=== PATIENT | female | born 2000 | race Caucasian/White ===

== ENCOUNTER 2023-01-15 19:32 | Emergency (ER) | payer OTHER, SELFPAY ==
[2023-01-15 19:35] VITALS: BP 159/99; PULSE 106; RESP 16; TEMP 37.3; O2SAT 98; BMI 28.5
--- NOTE | 2023-01-15 19:52 | CT_ITS ---
[address] [address] Patient Name: MOLINA DUPREE MRN: [id number] date: 2000 Sex: F Assigned Patient Location: ER Current Patient Location: ER Accession/Order Number: [id number] Exam Date: 01/15/2023 20:50 Report Date: 01/15/2023 21:25 At the request of: JEROME MARKER Procedure: CT soft tissue neck w con CT SOFT TISSUE NECK WITH IV CONTRAST. INDICATION: left sided neck mass COMPARISON: None. TECHNIQUE: CT soft tissue neck with IV contrast. Sagittal and coronal reformats were obtained. Approximately ML ml Omnipaque 350 was administered intravenously. FINDINGS: INTRACRANIAL CONTENTS: No mass or hemorrhage. PARANASAL SINUSES: Paranasal sinuses are clear. MASTOID AIR CELLS: Clear. EXTERNAL/MIDDLE AIR CAVITIES: Clear.l SALIVARY GLANDS: Normal. SUBCUTANEOUS/SOFT TISSUES: There is ill-defined inflammation deep to the left sternocleidomastoid muscle at the C2 level which measures approximately 1.7 x 1.5 cm. There is edema and inflammation of the left sternocleidomastoid muscle and surrounding musculature. There is also subcutaneous inflammation in the left upper lateral neck. No gas. ORAL CAVITY: No periapical lucency. No inflammation or abscess. MUCOSA: No mass.. No fluid collection or inflammation. Normal epiglottis and nasopharyngeal adenoids. PARAPHARYNGEAL/RETROPHARYNGEAL SPACES: Clear. No inflammation or fluid collection. LYMPH NODES: There are mildly enlarged left posterior cervical lymph nodes measuring up to 1 cm in short axis.. THYROID: No mass. UPPER LUNGS: Clear. VESSELS: The arterial and venous structures of the neck are patent. MUSCULOSKELETAL: No acute osseous abnormality.. CT/CT soft tissue neck w con IMPRESSION: 1. Findings are suggestive of left upper lateral neck cellulitis and myositis particularly involving the sternocleidomastoid muscle. There is a phlegmonous process deep to the sternocleidomastoid muscle at the C2 level. No drainable fluid collection. 2. Mildly enlarged left posterior cervical lymph nodes likely reactive. Recommend clinical follow-up. Electronically authenticated by: GABE AVALOS Date: 01/15/2023 21:25
--- NOTE | 2023-01-15 19:56 | ED_ITS ---
HPI - Skin/Abscess/Foreign Bdy General Chief complaint: Skin/Abscess/Foreign Body Stated complaint: LUMP Time Seen by Provider: 01/15/23 19:38 Source: patient Mode of arrival: walk-in History of Present Illness HPI narrative: 22-year-old female is brought to emergency department by her father for evaluation of a painful lump on the left side of her neck. The patient states she woke up Friday morning with a small lump on the lateral aspect of the left side of her neck. Since that time it has gotten bigger and more tender and today the skin became red. She has been running a low-grade fever around 101. She was seen and evaluated and had a negative strep test and a mono test. She was given a prescription for steroids and antibiotics. The patient's father states that as a child she had multiple ear infections and required ear tubes. When the ear tubes fell out they not replace them. The patient has pain with movement of her head in any direction. She denies any sore throat. She denies any headache. She has not had any weight loss or night sweats. Related Data Allergies Allergy/AdvReac Type Severity Reaction Status Date / Time No Known Drug Allergies Allergy Verified 01/15/23 19:40 Review of Systems ROS Status of ROS 10 or more systems reviewed and unremarkable except as noted in history and below Exam Narrative Exam Narrative: Nurses note and vital signs reviewed; She has a low-grade fever, she has not tachycardic with a pulse of 106 and blood pressure is elevated at 159/99, she has not hypoxic with pulse ox 98 percent on room air General:Anxious, nontoxic, somewhat tearful female, no respiratory distress Skin: Warm, dry, no pallor noted. There is no rash noted. Head: Normocephalic, atraumatic Eye: Normal conjunctiva, no drainage, EOMI. PERRL Neck: There is approximately 8 x 8 cm, firm, tender and erythematous mass on the left side of the neck- the swelling and tenderness extends over the left mastoid with mastoid tenderness, pt has decreased ROM in all directions due to the mass Ears, Nose, Mouth, and Throat: oral mucosa is moist. Nares patent. Mouth without vesicles. Ear canals patent. Left TM has a small ostia remaining, likely related to history of TM tube placement Cardiovascular: Regular Rate and Rhythm S1S2, tachycardic at triage at 106bpm Respiratory: Patient is in no distress, no accessory muscle use, lungs are c lear to auscultation, no wheezing, rales or rhonchi Back: non-tender, no CVA tenderness bilaterally to percussion. GI: Normal bowel sounds, no tenderness to palpation, no masses appreciated. No rebound, guarding, or rigidity noted. Musculoskeletal: The patient has no evidence of calf tenderness, no pitting edema, symmetrical pulses noted bilaterally Neurological: A&O x4, normal speech Psychiatric: Cooperative Constitutional Vital Signs, click to edit/add: Last Vital Signs Temp 99.2 F 01/15/23 19:35 Pulse 85 01/15/23 22:45 Resp 16 01/15/23 22:45 BP 128/82 01/15/23 22:45 Pulse Ox 96 01/15/23 22:45 O2 Del Method Room Air 01/15/23 19:35 Course Vital Signs Vital signs: Vital Signs Temperature 99.2 F 01/15/23 19:35 Pulse Rate 106 H 01/15/23 19:35 Respiratory Rate 16 01/15/23 19:35 Blood Pressure 159/99 H 01/15/23 19:35 Pulse Oximetry 98 01/15/23 19:35 Oxygen Delivery Method Room Air 01/15/23 19:35 Temperature 99.2 F 01/15/23 19:35 Pulse Rate 85 01/15/23 22:45 Respiratory Rate 16 01/15/23 22:45 Blood Pressure 128/82 01/15/23 22:45 Pulse Oximetry 96 01/15/23 22:45 Oxygen Delivery Method Room Air 01/15/23 19:35 MDM - Skin/Abscess/Foreign Bdy MDM Narrative Medical decision making narrative: 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 The symptoms started on Friday and have increased since that time. She was seen at [facility] acid negative for strep and mono and was given a prescription for Augmentin and steroids. She has been running a low-grade fever. Today the area became more tender and the skin became erythematous. She has a very large approximately 8 x 8 cm area of tender swelling at the left lateral neck that overlies the mastoid. She has pain with any range of motion of the neck. She is not having difficulty breathing or swallowing. My concern was that she had a developing abscess that may be encroaching on her pharyngeal spaces and retro-pharyngeal spaces. An IV was placed and she was medicated with IV fluids and Toradol. Routine labs are reviewed. She has a normal lactic acid. Her white blood cell count is elevated at 19.1. She has been on steroids for the past several days and is unclear if the elevated white blood cells indeed due to her infection or related to the steroid use. Her electrolytes are normal. CT scan of the neck with IV contrast which is included in the body of this report shows a cellulitis and myositis related to the sternocleidomastoid muscle with no drainable abscess, normal mastoid air cells, no impingement on the airway or pharyngeal or retropharyngeal spaces. This was discussed with the patient and her father. I discussed the case with ENT on-call. He suggested changing her and about his clindamycin for better coverage. She was encouraged to use warm compresses to this area for pain and at this point I did not feel that steroids would likely be helping her and suggested that she discontinue the steroid use antibiotics, clindamycin instead of Augmentin and follow closely with her PCP. She was encouraged to return to emergency department for difficulty breathing or swallowing or extension of the current infection. Medical Records Medical records narrative: The [address] [address] [address] Scan Report Signed Patient: MOLINA DUPREE MR#: [id number] : 2000 Acct:[id number] Age/Sex: 22 / F ADM Date: 01/15/23 Loc: ER Attending Dr: Ordering Physician: Juany Palomares Date of Service: 01/15/23 Procedure(s): CT soft tissue neck w con Accession Number(s): [id number] cc: Physician,Non-Staff Morgan~ The [address] [address] Patient Name: MOLINA DUPREE MRN: [facility]:[id number] date: 2000 Sex: F Assigned Patient Location: ER Current Patient Location: ER Accession/Order Number: [id number] Exam Date: 01/15/2023 20:50 Report Date: 01/15/2023 21:25 At the request of: JUANY PALOMARES Procedure: CT soft tissue neck w con CT SOFT TISSUE NECK WITH IV CONTRAST. INDICATION: left sided neck mass COMPARISON: None. TECHNIQUE: CT soft tissue neck with IV contrast. Sagittal and coronal reformats were obtained. Approximately ML ml Omnipaque 350 was administered intravenously. FINDINGS: INTRACRANIAL CONTENTS: No mass or hemorrhage. PARANASAL SINUSES: Paranasal sinuses are clear. MASTOID AIR CELLS: Clear. EXTERNAL/MIDDLE AIR CAVITIES: Clear.l SALIVARY GLANDS: Normal. SUBCUTANEOUS/SOFT TISSUES: There is ill-defined inflammation deep to the left sternocleidomastoid muscle at the C2 level which measures approximately 1.7 x 1.5 cm. There is edema and inflammation of the left sternocleidomastoid muscle and surrounding musculature. There is also subcutaneous inflammation in the left upper lateral neck. No gas. ORAL CAVITY: No periapical lucency. No inflammation or abscess. MUCOSA: No mass.. No fluid collection or inflammation. Normal epiglottis and nasopharyngeal adenoids. PARAPHARYNGEAL/RETROPHARYNGEAL SPACES: Clear. No inflammation or fluid collection. LYMPH NODES: There are mildly enlarged left posterior cervical lymph nodes measuring up to 1 cm in short axis.. THYROID: No mass. UPPER LUNGS: Clear. VESSELS: The arterial and venous structures of the neck are patent. MUSCULOSKELETAL: No acute osseous abnormality.. CT/CT soft tissue neck w con IMPRESSION: 1. Findings are suggestive of left upper lateral neck cellulitis and myositis particularly involving the sternocleidomastoid muscle. There is a phlegmonous process deep to the sternocleidomastoid muscle at the C2 level. No drainable fluid collection. 2. Mildly enlarged left posterior cervical lymph nodes likely reactive. Recommend clinical follow-up. Lab Data Labs: Lab Results 01/15/23 Range/Units 20:00 WBC 19.1 H (4.0-11.0) 10^3/uL RBC 3.76 L (4.20-5.40) 10^6/uL Hgb 11.2 L (12.0-16.0) g/dL Hct 34.3 L (36.0-48.0) % MCV 91.2 (81.0-99.0) fL MCH 29.8 (26.7-34.0) pg MCHC 32.7 (29.9-35.2) g/dL RDW 13.4 (11.0-15.0) % Plt Count 268 (150-450) 10^3/uL MPV 10.1 (9.5-13.5) fL Neut % (Auto) 75.6 H (43.0-75.0) % Lymph % (Auto) 18.0 L (20.5-60.0) % [place] % (Auto) 5.5 (1.7-12.0) % Eos % (Auto) 0.1 L (0.9-7.0) % Baso % (Auto) 0.2 (0.2-2.0) % Neut # (Auto) 14.4 H (1.4-6.5) 10^3/uL Lymph # (Auto) 3.4 (1.2-3.8) 10^3/uL [place] # (Auto) 1.1 H (0.3-0.8) 10^3/uL Eos # (Auto) 0.0 (0.0-0.7) 10^3/uL Baso # (Auto) 0.0 (0.0-0.1) 10^3/uL Abs Immat Gran (auto) 0.11 H (0.00-0.03) 10^3/uL Imm/Tot Granulo (auto) 0.6 H (0.0-0.5) % Sodium 138 (136-145) mmol/L Potassium 3.3 L (3.5-5.1) mmol/L Chloride 103 (98-107) mmol/L Carbon Dioxide 26.3 (21.0-32.0) mmol/L Anion Gap 12.0 BUN 9.0 (7.0-18.0) mg/dL Creatinine 0.71 (0.55-1.02) mg/dL Est GFR ( Amer) >60 (>=60) Est GFR (Non-Af Amer) >60 (>=60) BUN/Creatinine Ratio 12.7 Glucose 111 H (74-106) mg/dL Lactate 1.8 (0.4-2.0) mmol/L Calcium 9.1 (8.5-10.1) mg/dL Total Bilirubin 0.2 (0.2-1.0) mg/dL AST 20 (15-37) U/L ALT 18 (14-59) U/L Alkaline Phosphatase 79 (46-116) U/L Total Protein 8.0 (6.4-8.2) g/dL Albumin 3.2 L (3.4-5.0) g/dL Globulin 4.8 g/dL Albumin/Globulin Ratio 0.7 Discharge Plan Discharge Chief Complaint: Skin/Abscess/Foreign Body Clinical Impression: Cellulitis, Myositis Patient Disposition: Home, Self-Care Time of Disposition Decision: 21:52 Condition: Good Instructions: Cellulitis (ED) Additional Instructions: Tylenol Motrin as needed for fever or pain. Discontinue steroids and Augmentin and use clindamycin instead. Return to the emergency department for difficulty breathing or swallowing. Stand Alone Forms: Portal Instructions Referrals: JUDIE MITCHELL [Physician] - As soon as possible Physician,Non-Staff, [Primary Care Provider] - 1 week Discharge Date/Time: 01/15/23 22:49
[2023-01-15] MEDS: KETOROLAC TROMETHAMINE 30 MG/ML VIAL IVP (20:06)
[2023-01-15] MEDS: 0.9 % SODIUM CHLORIDE 1,000 ML 1000 ML IV (20:06)
[2023-01-15 20:09] LABS: Basophils Percent Auto 0.2 % (0.2-2.0); Eosinophils Percent Auto 0.1 % (0.9-7.0); Hematocrit 34.3 % (36.0-48.0); Hemoglobin 11.2 g/dL (12.0-16.0); Immature Granulocytes Abs Auto 0.11 10^3/uL (0.00-0.03); Immature Granulocytes Pct Auto 0.6 % (0.0-0.5); Lymphocytes Absolute Auto 3.4 10^3/uL (1.2-3.8); Mean Corpuscular HGB Conc 32.7 g/dL (29.9-35.2); Mean Corpuscular Hemoglobin 29.8 pg (26.7-34.0); Mean Corpuscular Volume 91.2 fL (81.0-99.0); Mean Platelet Volume 10.1 fL (9.5-13.5); Monocytes Absolute Auto 1.1 10^3/uL (0.3-0.8); Monocytes Percent Auto 5.5 % (1.7-12.0); Neutrophils Absolute Auto 14.4 10^3/uL (1.4-6.5); Neutrophils Percent Auto 75.6 % (43.0-75.0); Platelet Count 268 10^3/uL (150-450); Red Blood Count 3.76 10^6/uL (4.20-5.40); Red Cell Distribution Width 13.4 % (11.0-15.0); White Blood Count 19.1 10^3/uL (4.0-11.0)
[2023-01-15 20:28] LABS: Alanine Aminotransferase 18 U/L (14-59); Albumin Globulin Ratio 0.7; Albumin Level 3.2 g/dL (3.4-5.0); Alkaline Phosphatase 79 U/L (46-116); Aspartate Amino Transferase 20 U/L (15-37); BUN Creatinine Ratio 12.7; Bilirubin Total 0.2 mg/dL (0.2-1.0); Calcium 9.1 mg/dL (8.5-10.1); Carbon Dioxide 26.3 mmol/L (21.0-32.0); Chloride 103 mmol/L (98-107); Estimated GFR (African America >60 (>=60); Estimated GFR (Non-African Ame >60 (>=60); Globulin 4.8 g/dL; Glucose 111 mg/dL (74-106); Potassium 3.3 mmol/L (3.5-5.1); Sodium 138 mmol/L (136-145)
[2023-01-15 20:30] LABS: Lactate/Lactic Acid 1.8 mmol/L (0.4-2.0)
[2023-01-15] MEDS: CLINDAMYCIN PHOSPHATE/D5W 900 MG/50 ML PIGGYBACK 100 MG IV (22:03)
[2023-01-15 22:45] VITALS: BP 128/82; PULSE 85; RESP 16; O2SAT 96
== END 2023-01-15 22:49 | disposition home or self-care (01) ==
PROVIDERS: Emergency Provider Emergency Medicine
DX: L03.221 Cellulitis of neck (principal); M60.9 Myositis, unspecified; R50.9 Fever, unspecified
CPT/HCPCS: 36415; 70491; 80053; 83605; 85025; 87040; 96374; 96375; 99285; Q9967

== ENCOUNTER 2023-05-05 08:24 | Outpatient (OUT) | payer OTHER, SELFPAY ==
--- OUTSIDE RECORDS SUMMARY | 2023-05-05 08:27 | XMS_ITS | CCD ---
Author Name Unknown Address [facility] [place] [employer] [facility] [address] [place] [address] Organization [facility] Care Team Providers Care Tongue Trimmer Name Role Phone BinaTosha Unavailable DR JUDIE CASTANON Primary Care Unavailable KRISTIAN CHRISTIAN Admitting Unavailable KRISTIAN CHRISTIAN Attending Unavailable KRISTIAN CHRISTIAN Consulting Unavailable CASTANON, DR DIMAS Primary Care Unavailable KRISTIAN CHRISTIAN Admitting Unavailable KRISTIAN CHRISTIAN Attending Unavailable KRISTIAN CHRISTIAN Consulting Unavailable STEPHEN, DR DIMAS Primary Care Unavailable FRANCISCO SNYDER Attending Unavailable FRANCISCO SNYDER Consulting Unavailable FRANCISCO SNYDER Admitting Unavailable CASTANON, DR DIMAS Primary Care Unavailable ALONSO, DR LAVERNE Barber Consulting Unavailguille DESOUZATER, DR DIMAS Admitting Unavailable CASTANON, DR DIMAS Attending Unavailable Lewis Ba Unavailable Dyana Kwong Attending Unavailable Dyana Kwong Admitting Unavailable Judie Castanon Primary Care Unavailable Marty DELVALLE, Sadie Richardson Unavailable Judie Castanon MD Primary Care Provider Dyana Kwong NP Unavailable Oralia Mcadams NP Unavailable [phone] ORALIA MCADAMS Attending Unavailable Medications Current Medications Medication Drug Class(es) Dates Sig (Normalized) Sig (Original) amoxicillin 875 mg / clavulanate 125 mg oral tablet (1 source) Penicillin-class Antibacterial Start: 12-11-2022 take 1 tablet by mouth every twelve hours Amoxicillin-Pot Clavulanate 875-125 MG 1 tablet Orally every 12 hrs for 10 day(s) Nov, Active benzonatate 200 mg oral capsule (1 source) Non-narcotic Antitussive Start: 12-11-2022 take 1 capsule by mouth three times daily as needed for cough Benzonatate 200 MG 1 capsule Orally Three times a day as needed for cough for 7 day(s) Nov, Active cetirizine hydrochloride 10 mg oral tablet (4 sources) Histamine-1 Receptor Antagonist Start: 04-08-2019 take 1 tablet by mouth once daily Cetirizine HCl 10 MG 1 tablet Orally Once a day for 30 day(s) Jun, Active dextromethorphan hydrobromide 1.5 mg/ml / pyrilamine maleate 1.5 mg/ml oral solution (4 sources) Uncompetitive A-jehwpt-W-aspartat e Receptor Antagonist, Sigma-1 Agonist Start: 07-10-2021 Phillips DM 7.5-7.5 MG/5ML 10 ml Orally every 6-8 hours as needed for 8 days Jun, Active Start: 04-08-2019 Phillips DMT 30- 30 MG 1 tablet Orally every 6-8 hours for 7 days Mar, Not-Taking ethinyl estradiol 0.035 mg / norgestimate 0.25 mg oral tablet (3 sources) Progestin, Estrogen Estarylla 0. 25-35 MG-MCG tablet hydrOXYzine hydrochloride 25 mg oral tablet (2 sources) Antihistamine Start: 04-21-19 End: 05-21-19 24 hydrOXYzine HCl (Atarax) 25 MG tablet Indications: Anxiety Take 0.5 tablets (12.5 mg) by mouth as needed at bedtime for anxiety 15 tablet 0 04/21/2023 05/21/2023 Active sertraline 25 mg oral tablet (2 sources) Serotonin Reuptake Inhibitor Start: 04-21-19 End: 05-21-19 24 take 1 tablet by mouth in the morning sertraline (Zoloft) 25 MG tablet Indications: Anxiety Take 1 tablet (25 mg) by mouth in the morning. 30 tablet 0 04/21/2023 05/21/2023 Active Sprintec 28 (3 sources) Sprintec 28 Acti ve Completed/Discontinued Medications Medication Drug Class(es) Dates Sig (Normalized) Sig (Original) fluconazole 150 mg oral tablet (3 sources) Azole Antifungal Start: 01-13-2023 End: 04-21-2023 fluconazole (Diflucan) 150 MG tablet Indications: Vaginal lacey Take one tablet now, then take the second tablet 72 hours later 2 tablet 0 01/13/2023 04/21/2023 Discontinued (Therapy completed) fluticasone propionate 0.05 mg/actuat metered dose nasal spray (4 sources) Corticosteroid Start: 04-08-2019 take 1 spray(s) nasal route once daily Fluticasone Propionate 50 MCG/ACT 1 spray in each nostril Nasally Once a day for 30 day(s) Mar, Not-Taking predniSONE 20 mg oral tablet (4 sources) Start: 01-13-2023 End: 04-21-2023 predniSONE (Deltasone) 20 MG tablet Indications: Lymphadenopathy of left cervical region , Upper respiratory tract infection, unspecified type Take two tablets (40 mg) daily for five days, then take one tablet (20 mg) daily for five days. Take with food. 15 tablet 0 01/13/2023 04/21/2023 Discontinued (Therapy completed) Start: 12-11-2022 predniSONE 20 MG 1 tablet Orally twice a day for 5 days, then once a day for 5 days for 10 days Nov, Active Problems Active Problems Problem Classification Problem Date Documented Da te Episodic/Chronic Anxiety disorders (2 sources) Anxiety; Translations: [Anxiety disorder, unspecified] 04-21-2023 Chronic Conditions associated with dizziness or vertigo (4 sources) Dizziness and giddiness; Translations: [DIZZINESS AND GIDDINESS] Onset: 07-20-2021 Episodic Disorders of lipid metabolism (3 sources) Hyperlipidemia; Translations: [Hyperlipidemia, unspecified] Onset: 12-25-2018 01-13-2023 Chronic Essential hypertension (3 sources) Essential hypertension; Translations: [Essential (primary) hypertension] Onset: 12-25-2018 01-13-2023 Chronic Immunizations and screening for infectious disease (4 sources) Contact with and (suspected) exposure to other viral communicable diseases; Translations: [Contact with and (suspected) exposure to other viral communicable diseases] Onset: 07-10-2021 Resolved: 11-01-2021 Episodic Lymphadenitis (1 source) Localized enlarged lymph nodes; Translations: [Localized enlarged lymph nodes] Onset: 01-13-2023 Episodic Menstrual disorders (3 sources) Menorrhagia; Translations: [Excessive and frequent menstruation with regular cycle] Onset: 10-23-2022 10-23-2022 Chronic Mood disorders (3 sources) Recurrent major depressive episodes, mild ; Translations: [Major depressive disorder, recurrent, mild] Onset: 02-27-2021 01-13-2023 Chronic Nutritional deficiencies (3 sources) Vitamin D deficiency; Translations: [Vitamin D deficiency, unspecified] Onset: 05-28-2019 01-13-2023 Chronic Osteoporosis (3 sources) Senile osteoporosis; Translations: [Age-related osteoporosis without current pathological fracture] Onset: 12-25-2018 01-13-2023 Chronic Other acquired deformities (3 sources) Dextroscoliosis; Translations: [Other forms of scoliosis, site unspecified] Onset: 10-23-2022 10-23-2022 Chronic Other screening for suspected conditions (not mental disorders or infectious disease) (6 sources) Patient encounter status; Translations: [Encounter for screening for nutritional disorder] 04-24-2023 Episodic Other upper respiratory disease (3 sources) Sinusitis; Translations: [Allergic rhinitis, unspecified] Chronic Other upper respiratory disease (1 source) Allergic rhinitis, unspecified Onset: 07-10-2021 Resolved: 07-10-2021 Chronic Other upper respiratory disease (3 sources) Seasonal allergy; Translations: [Other seasonal allergic rhinitis] Onset: 10-23-2022 10-23-2022 Chronic Other upper respiratory infections (2 sources) Acute laryngitis; Translations: [Acute sinusitis, unspecified] Episodic Otitis media and related conditions (3 sources) Otitis media; Translations: [Otitis Media NOS] Episodic Peripheral and visceral atherosclerosis (3 sources) Peripheral vascular disease; Translations: [Peripheral vascular disease, unspecified] Onset: 04-13-2020 01-13-2023 Chronic Unclassified (2 sources) CONTACT W/AND (SUSP) EXPOS COVID-19; Translations: [CONTACT W/AND (SUSP) EXPOS COVID-19] Onset: 10-09-2021 Viral infection (1 source) COVID-19; Translations: [COVID-19] Onset: 10-09-2021 Past or Other Problems Problem Classification Problem Date Documented Da te Episodic/Chronic Administrative/social admission (4 sources) Encounter for pre-employment examination; Translations: [ENCOUNTER FOR PRE-EMPLOYMENT EXAM] Onset: 02-28-2021 Episodic Gastritis and duodenitis (3 sources) Gastroduodenitis; Translations: [Gastroduodenitis , unspecified, without bleeding] Onset: 10-23-2022 10-23-2022 Episodic Headache; including migraine (3 sources) Tension-type headache; Translations: [Tension-type headache, unspecified, not intractable] Onset: 10-23-2022 Resolved: 10-25-2022 10-25-2022 Chronic Mood disorders (2 sources) Mood disorders Onset: 04-21-2023 04-21-2023 Unclassified (1 source) CONTACT W/AND (SUSP) EXPOS COVID-19; Translations: [CONTACT W/AND (SUSP) EXPOS COVID-19] Onset: 10-08-2021 Results Test Name Value Interpretation Reference Range Facility BioFire Not Detectedon 01-13 BioFire Not Detected Not detected Normal Not Detecte [facility] Comment on above: Result Comment: This is a duplicate RP2.1 COVID (PCR) result to be used for statistical tracking purpose only. PERFORMED BY: [place] [address] PATHOLOGIST RECORD PRESS TENDER SULEIMAN LYN M.D. Performed By: #### M ONOTEST, RESP PANEL UPP., QS, BIOFIRECOVNOTDE #### [facility] [address] [place] [address] Monoteston 01-13-2023 Monotest Negative Normal Negative [facility] Comment on above: Result Comment: PERF ORMED BY: [place] [address] PATHOLOGIST RECORD PRESS TENDER SULEIMAN LYN M.D. Performed By: #### M ONOTEST, RESP PANEL UPP., QS, BIOFIRECOVNOTDE #### [facility] [address] [place] [address] Quick Strepon 01-13-2023 Quick Strep Streptococcus pyogenes Ag [Presence] in Throat by Rapid immunoassay Negative for Group A Strep Antigen Note 1 NOTE 2 Results are those of a screening test. NOTE 3 If clinically indicated please order a culture. NOTE 4 NOTE 5 Reference range = Negative PERFORMED BY: [place] [address] PATHOLOGIST RECORD PRESS TENDER SULEIMAN LYN M.D. [facility] Comment on above: Performed By: #### M ONOTEST, RESP PANEL UPP., QS, BIOFIRECOVNOTDE #### [address] Respiratory (Upper) Panel, P CRon 01-13-2023 Respiratory (Upper) Panel, PCR Adenovirus Not detected Bordetella parapertussis Not detected Chlamydia pneumoniae Not detected Coronavirus 229E Not detected Coronavirus HKU1 Not detected Coronavirus NL63 Not detected Coronavirus OC43 Not detected Influenza A Not detected Influenza B Not detected Human Metapneumovirus Not detected Mycoplasma pneumoniae Not detected Parainfluenza Virus 1 Not detected Parainfluenza Virus 2 Not detected Parainfluenza Virus 3 Not detected Parainfluenza Virus 4 Not detected Bordetella pertussis-ptxP Not detected Human Rhino/Enterovirus Detected Resp. Syncytial Virus Not detected COVID-19 Detected/Not Detected Not detected Blank Space FLUA TEST INCLUDES Influenza A tests for the following clinically FLUA TEST INCLUDES significant subtypes: FLUA TEST INCLUDES - Influenza A FLUA TEST INCLUDES - Influenza A H1 FLUA TEST INCLUDES - Influenza A H1 2009 FLUA TEST INCLUDES - Influenza A H3 Blank Space PERFORMED BY: [facility] [address] [id number] PATHOLOGIST RECORD PRESS TENDER SULEIMAN LYN M.D. Normal [facility] Comment on above: Performed By: #### M ONOTEST, RESP PANEL UPP., QS, BIOFIRECOVNOTDE #### [facility] [address] [id number] [facility] Quick Fluon 11-01-2021 FLUAV Ab CF (S) [Titer] Negative [employer] Other FLUBV Ab CF (S) [Titer] Negative [employer] Other Quick Strepon 11-01-2021 S. pyogenes Org specific cx Ql (Throat) Negative [facility] [employer] Other Quick Strep [facility] [employer] Other ASYMPTOMATIC COVID-19 ANTIGE Non 10-08-2021 EUA Statement SEE BELOW Normal [facility] Comment on above: Result Comment: This test has not been FDA cleared or approved, but has been authorized by the FDA under an Emergency Use Authorization (EUA) for use by authorized laboratories certified under CLIA that meet the requirements to perform moderate or high complexity testing. This test has been authorized only for the detection of proteins from SARS-CoV-2, not for any other viruses or pathogens. The emergency use of this test is authorized for the duration of the declaration that circumstances exist justifying the authorization of emergency use of in vitro diagnostic tests for detection and/or diagnosis of Covid-19 under section 564(b)(1) of the Act, 21 U.S.C. 360bbb-3(b)(1), unless the declaration is terminated or authorization is revoked sooner. Performed By: #### C VDAGA #### [facility] [address] [place] [address] Dr. Bette Yu SARS-CoV-2 (COVID-19) RNA KATELYN+probe Ql (Unsp spec) Positive Critically abnormal NEGATIVE [facility] Comment on above: Result Comment: SARS -CoV-2 antigen present; does not rule out coinfection with other pathogens. Performed By: #### C VDAGA #### [facility] [address] [place], [place] [address] Dr. Bette Yu Covid-19 PCR (CVDTB)on 09-15 SARS-CoV-2 (COVID-19) RNA KATELYN+probe Ql (Unsp spec) Detected Critically abnormal NOT DETECTED [facility] Comment on above: Result Comment: This test is not yet approved or cleared by the [place] FDA. When there are no FDA-approved or cleared tests available, and other criteria are met, FDA can make tests available under an emergency access mechanism called an Emergency Use Authorization (EUA). The EUA for this test is supported by the [place] of Health and Human Service's declaration that circumstances exist to justify the emergency use of in vitro diagnostics for the detection and/or diagnosis of the virus that causes COVID-19. This EUA will remain in effect for the duration of the COVID-19 declaration justifying emergency of IVDs, unless it is terminated or revoked by the FDA (after which the test may no longer be used). Performed By: #### C VDTB #### [facility] [address] [id number] Bette Yu COVID Quick Testingon 2021 Result Negative [employer] Other Quick Fluon 07-10-2021 FLUAV Ab CF (S) [Titer] Negative [employer] Other FLUBV Ab CF (S) [Titer] Negative [employer] Other Quick Strepon 07-10-2021 S. pyogenes Org specific cx Ql (Throat) Negative [employer] Other Quick Strep [facility] [employer] Other US Pelvic Complete w/Transva ginalon 03-22-2021 US Pelvic Complete w/Transvaginal CLINICAL HISTORY: 21-year-old female with left-sided sharp pain last night and some lingering pain. No history of surgery. Patient is not sexually active. Therefore no transvaginal exam was obtained. COMPARISON: None. TECHNIQUE: Transabdominal ultrasound imaging of the pelvis was obtained. Patient refused transvaginal exam. FINDINGS: UTERUS: The uterus lies in a normal position. The uterus measures 7.7 x 4 x 3.1 cm and has a volume of 50.7 mL. The endometrial echo complex measures 0.8 cm in AP diameter. No abnormality of the echo pattern of the uterus is noted. No uterine mass is identified. RIGHT OVARY: The right ovary was not visualized. LEFT OVARY: The left ovary measures 2.7 x 2 x 1.8 cm and has a volume of 5.1 mL. Vascular flow is visualized in the left ovary. There are small follicles in this ovary. There is no free fluid visualized in the pelvis. There is no adnexal mass visualized. IMPRESSION: NORMAL SIZE UTERUS AND LEFT OVARY. RIGHT OVARY NOT VISUALIZED. NO FREE FLUID OR ABNORMAL ADNEXAL MASS. Report reported and signed by Juanita Loving on 03/22/2021 1634 Normal [facility] [employer]anger HEPATITIS B SURFACE ANTIBODY , QUANTon 03-02-2021 Hepatitis B Surf AB Quant 4.0 mIU/mL Critically low Immunity>9.9 [facility] Comment on above: Result Comment: Stat us of Immunity Anti-HBs Level Inconsistent with Immunity 0.0 - 9.9 Consistent with Immunity >9.9 Performed By: #### H EPBSRF #### [facility] [address] [place] [address] Dr. Bette Yu MMR IMMUNITYon 03-02-2021 Mumps Abs, IgG 243.0 AU/mL Normal Immune >10.9 [facility] Comment on above: Result Comment: Nega tive <9.0 Equivocal 9.0 - 10.9 Positive >10.9 A positive result generally indicates past exposure to Mumps virus or previous vaccination. Performed By: #### M MRIMMU #### [facility] [address] [place] [address] Dr. Bette Yu Rubella Antibodies, IgG 5.09 index Normal Immune >0.99 [facility] Comment on above: Result Comment: Non- immune <0.90 Equivocal 0.90 - 0.99 Immune >0.99 Performed By: #### M MRIMMU #### [facility] [address] [place] [address] Dr. Bette Yu Rubeola Ab, IgG >300.0 Normal Immune >16.4 [facility] Comment on above: Result Comment: Nega tive <13.5 Equivocal 13.5 - 16.4 Positive >16.4 Presence of antibodies to Rubeola is presumptive evidence of immunity except when acute infection is suspected. Performed By: #### M MRIMMU #### [facility] [address] [place] [address] Dr. Bette Yu QUANTIFERON TB GOLD PLUS (NO N-INC)on 03-02-2021 Comment Incubation performed. Normal [facility] Comment on above: Performed By: #### Q NTTBG #### [facility] [address] [place] [address] Dr. Bette Yu Criteria Comment Normal [facility] Comment on above: Result Comment: The QuantiFERON-TB Gold Plus result is determined by subtracting the Nil value from either TB antigen (Ag) tube. The mitogen tube serves as a control for the test. Performed By: #### Q NTTBG #### [facility] [address] [place] [address] Dr. Bette Yu Mitogen Value >10.00 Normal [facility] Comment on above: Performed By: #### Q NTTBG #### [facility] [address] [place] [address] Dr. Bette Yu Nill Value 0.03 IU/mL Normal [facility] Comment on above: Performed By: #### Q NTTBG #### [facility] [address] [place] [address] Dr. Bette Yu Quantiferon Gold Plus Negative Normal Negative [facility] Comment on above: Result Comment: Chem iluminescence immunoassay methodology Performed By: #### Q NTTBG #### [facility] [address] [place] [address] Dr. Bette Yu TB1 Ag Value 0.07 IU/mL Normal [facility] Comment on above: Performed By: #### Q NTTBG #### [facility] [address] [place] [address] Dr. Bette Yu TB2 Ag Value 0.07 IU/mL Normal [facility] Comment on above: Performed By: #### Q NTTBG #### [facility] [address] [id number] Bette Yu VARICELLA IGG ABon 1 Varicella Zoster IgG 332 index Normal Immune >165 [facility] Comment on above: Result Comment: Nega tive <135 Equivocal 135 - 165 Positive >165 A positive result generally indicates exposure to the pathogen or administration of specific immunoglobulins, but it is not indication of active infection or stage of disease. Performed By: #### V ARCEL #### [facility] [address] [place], [place] [address] Dr. Bette Yu Vital Signs Date Time Vital Sign Value Performing Clinician Facility 04-21-2023 15:33-0500 Body height 151.1 cm Oralia Lause ENVIRONMENTAL SERVICES WORKER Work Phone: [facility] 04-21-2023 15:33-0500 Body mass index (BMI) [Ratio] 30.19 kg/m2 Oralia Lause ENVIRONMENTAL SERVICES WORKER Work Phone: [facility] 04-21-2023 15:33-0500 Body temperature 97.59 [degF] Oralia Lause ENVIRONMENTAL SERVICES WORKER Work Phone: [facility] 04-21-2023 15:33-0500 Body weight 68.95 kg Oralia Lause ENVIRONMENTAL SERVICES WORKER Work Phone: [facility] 04-21-2023 15:33-0500 Diastolic blood pressure 80 mm[Hg] Oralia Lause ENVIRONMENTAL SERVICES WORKER Work Phone: [facility] 04-21-2023 15:33-0500 Heart rate 100 /min Oralia Lause ENVIRONMENTAL SERVICES WORKER Work Phone: [facility] 04-21-2023 15:33-0500 Respiratory rate 16 /min Oralia Lause ENVIRONMENTAL SERVICES WORKER Work Phone: [facility] 04-21-2023 15:33-0500 SaO2% (BldA) [Mass fraction] 100 % Oralia Lause ENVIRONMENTAL SERVICES WORKER Work Phone: [facility] 04-21-2023 15:33-0500 Systolic blood pressure 136 mm[Hg] Oralia Mcadams ENVIRONMENTAL SERVICES WORKER Work Phone: [facility] 12-11-2022 15:10-0400 Body height 151.13 cm Lewis Ba Other [employer] Other 12-11-2022 15:10-0400 Body mass index (BMI) [Ratio] 26.81 kg/m2 Lewis Ba Other [employer] Other 12-11-2022 15:10-0400 Body temperature 97.7 [degF] Lewis Ba Other [employer] Other 12-11-2022 15:10-0400 Body weight 61.24 kg Lewis Ba Other [employer] Other 12-11-2022 15:10-0400 Diastolic blood pressure 78 mm[Hg] Lewis Mejia Other [employer] Other 12-11-2022 15:10-0400 Respiratory rate 18 /min Lewis Ba Other [employer] Other 12-11-2022 15:10-0400 SaO2% (BldA) [Mass fraction] 98 % Lewis Mejia Other [employer] Other 12-11-2022 15:10-0400 Systolic blood pressure 112 mm[Hg] Lewis Ba Other [employer] Other 11-01-2021 14:40-0400 Body height 151.13 cm Tosha Curran Other [employer] Other 11-01-2021 14:40-0400 Body mass index (BMI) [Ratio] 25.81 kg/m2 Tosha Curran Other [employer] Other 11-01-2021 14:40-0400 Body temperature 97.3 [degF] Tosha Hernandezault Other [employer] Other 11-01-2021 14:40-0400 Body weight 58.97 kg Tosha Curran Other [employer] Other 11-01-2021 14:40-0400 Respiratory rate 18 /min Tosha Curran Other [employer] Other 11-01-2021 14:40-0400 SaO2% (BldA) [Mass fraction] 98 % Tosha Curran Other [employer] Other 07-10-2021 18:45-0400 Body height 149.86 cm Tosha Curran Other [employer] Other 07-10-2021 18:45-0400 Body mass index (BMI) [Ratio] 23.22 kg/m2 Tosha Curran Other [employer] Other 07-10-2021 18:45-0400 Body temperature 97.5 [degF] Tosha Curran Other [employer] Other 07-10-2021 18:45-0400 Body weight 52.16 kg Tosha Curran Other [employer] Other 07-10-2021 18:45-0400 Respiratory rate 18 /min Tosha Curran Other [employer] Other 07-10-2021 18:45-0400 SaO2% (BldA) [Mass fraction] 98 % Tosha Curran Other [employer] Other Encounters Encounter Date Encounter Type Care Provider Facility Start: 04-21-2023 End: 04-21-2023 ambulatory ORALIALOVE MCADAMS Not Available Start: 04-21-2023 End: 04-21-2023 Office outpatient visit 25 minutes Oralia Mcadams ENVIRONMENTAL SERVICES WORKER Work Phone: [facility] Comment on above: Anxiety (Primary Dx) ; Encounter for vitamin deficiency screening; Screening for lipid disorders; Adult general medical examination; Screening for thyroid disorder Start: 04-21-2023 End: 04-21-2023 Patient encounter status Oralia Castellon Abbe ENVIRONMENTAL SERVICES WORKER Work Phone: [facility] Start: 04-20-2023 Chart abstracting Oralia Bethea ENVIRONMENTAL SERVICES WORKER Work Phone: [facility] Start: 01-13-2023 End: 01-13-2023 ambulatory Dyana Kwong Facility:[facility] Start: 12-11-2022 End: 12-11-2022 ambulatory Lewis Ba Other [employer] Other Start: 12-11-2022 Office outpatient vi sit 15 minutes Lewis Ba [facility] Start: 11-01-2021 End: 11-01-2021 ambulatory Tosha Curran Other [employer] Other Start: 11-01-2021 Office outpatient vi sit 25 minutes Tosha Curran [facility] Start: 10-08-2021 End: 10-08-[address] JUDIE CASTNAON Facility:[facility] Start: 10-04-2021 End: 10-04-[address] JUDIE CASTANON Facility:[facility] Start: 07-20-2021 End: 07-20-[address] JUDIE CASTANON Facility:H1 Start: 07-10-2021 (URG) Urgent Care Visit Tosha leblanc [facility] [place] Start: 07-10-2021 End: 07-10-2021 ambulatory Tosha Bina Other [facility] Other Start: 02-28-2021 End: 03-01-[address] JUDIE CASTANON Facility: Plan of Treatment Date Care Activity Detail Author Start: 09-14-2023 Influenza vaccination Influenza Vacc ine (#1) [facility] Comment on above: Postponed from 11/15 (Patient Refused) Start: 05-19-2023 End: 05-19-2023 Patient encounter procedure 05/19/2023 4:20 PM EST Office Visit [facility] [address] [place] [phone] Oralia Mcadams, ENVIRONMENTAL SERVICES WORKER [address] [place] [address] [facility] Start: 05-05-2023 End: 05-05-2023 Clinical Support 05/05/2023 10:00 AM EST Clinical Support [facility] [address] [place] [id number] Ny Mccoy, [facility] [address] [place] [address] [facility] Start: 04-24-2023 End: 04-24-2024 25-hydroxyvitamin D3 [Mass/volume] in Serum or Plasma Vitamin D 25 hydroxy Lab Routine Anxiety Encounter for vitamin deficiency screening Expected: 04/24/2023 (Approximate), Expires: 04/24/2024 [facility] Work Phone: Comment on above: Expected: 04/24/2023 (Approximate), Expires: 04/24/2024 Start: 04-24-2023 End: 04-24-2024 Cobalamin (Vitamin B12) [Mass/volume] in Serum or Plasma Vitamin B12 Lab Routine Anxiety Encounter for vitamin deficiency screening Expected: 04/24/2023 (Approximate), Expires: 04/24/2024 [facility] Comment on above: Expected: 04/24/2023 (Approximate), Expires: 04/24/2024 Start: 04-24-2023 End: 04-24-2024 Thyroxine (T4) free [Mass/volume] in Serum or Plasma T4, free Lab Routine Anxiety Screening for thyroid disorder Expected: 04/24/2023 (Approximate), Expires: 04/24/2024 [facility] Comment on above: Expected: 04/24/2023 (Approximate), Expires: 04/24/2024 Start: 04-21-2023 End: 04-21-2023 Patient encounter procedure 04/21/2023 3:40 PM EST Office Visit [facility] [address] [place] [place] [address] Oralia Mcadams NP [address] [place] [phone] [facility] Start: 11-15-2022 Influenza vaccination Influenza Vacc ine (#1) [facility] CBC W Auto Different ial panel - Blood CBC auto differential Lab Routine Adult general medical examination Ordered: 04/24/2023 [facility] Comment on above: Ordered: 04/24/2023 Comprehensive metabo lic 2000 panel - Serum or Plasma Comprehensive metabolic panel Lab Routine Adult general medical examination Ordered: 04/24/2023 [facility] Comment on above: Ordered: 04/24/2023 Lipid 1996 panel - S mendoza or Plasma Lipid panel Lab Routine Screening for lipid disorders Ordered: 04/24/2023 [facility] Comment on above: Ordered: 04/24/2023 Thyrotropin [Units/volume] in Serum or Plasma TSH Lab Routine Anxiety Screening for thyroid disorder Ordered: 04/24/2023 [facility] Comment on above: Ordered: 04/24/2023 Immunizations Immunization Date Immunization Notes Care Provider Radha [facility] 12-14-2019 influenza, injectabl e, quadrivalent, preservative free Oralia Mcadams ENVIRONMENTAL SERVICES WORKER Work Phone: [facility] 12-14-2019 influenza virus vacc ine, unspecified formulation Oralia Mcadams ENVIRONMENTAL SERVICES WORKER Work Phone: [facility] 02-24-2019 Human Papillomavirus 9-valent vaccine Oralia Lause ENVIRONMENTAL SERVICES WORKER Work Phone: [facility] 08-12-2018 human papilloma viru s vaccine, quadrivalent Oralia Lause ENVIRONMENTAL SERVICES WORKER Work Phone: [facility] 07-08-2018 human papilloma viru s vaccine, quadrivalent Oralia Lause ENVIRONMENTAL SERVICES WORKER Work Phone: [facility] 07-08-2018 meningococcal polysaccharide (groups A, C, Y and W-135) diphtheria toxoid conjugate vaccine (MCV4P) Oralia Lause ENVIRONMENTAL SERVICES WORKER Work Phone: [facility] 01-01-2018 influenza, injectabl e, quadrivalent, preservative free Oralia Lause ENVIRONMENTAL SERVICES WORKER Work Phone: [facility] 04-03-2017 influenza, seasonal, injectable Oralia Lause ENVIRONMENTAL SERVICES WORKER Work Phone: [facility] 08-15-2016 human papilloma viru s vaccine, quadrivalent Oralia Lause ENVIRONMENTAL SERVICES WORKER Work Phone: [facility] 08-15-2005 measles, mumps and r ubella virus vaccine Oralia Lause ENVIRONMENTAL SERVICES WORKER Work Phone: [facility] 08-15-2005 poliovirus vaccine, inactivated Oralia Lause ENVIRONMENTAL SERVICES WORKER Work Phone: [facility] 08-15-2005 varicella virus vaccine Jayne ica Lause ENVIRONMENTAL SERVICES WORKER Work Phone: [facility] 04-13-2003 diphtheria, tetanus toxoids and acellular pertussis vaccine, unspecified formulation Oralia Lause ENVIRONMENTAL SERVICES WORKER Work Phone: [facility] 04-13-2003 haemophilus influenz ae type b vaccine, HbOC conjugate Oralia Lause ENVIRONMENTAL SERVICES WORKER Work Phone: [facility] 04-13-2003 measles, mumps and r ubella virus vaccine Oralia Lause ENVIRONMENTAL SERVICES WORKER Work Phone: [facility] 04-13-2003 poliovirus vaccine, inactivated Oralia Lause ENVIRONMENTAL SERVICES WORKER Work Phone: [facility] 01-01-2002 diphtheria, tetanus toxoids and acellular pertussis vaccine, unspecified formulation Oralia Lause ENVIRONMENTAL SERVICES WORKER Work Phone: [facility] 01-01-2002 haemophilus influenz ae type b vaccine, HbOC conjugate Oralia Lause ENVIRONMENTAL SERVICES WORKER Work Phone: [facility] 01-01-2002 hepatitis B vaccine, pediatric or pediatric/adolescent dosage Oralia Lause ENVIRONMENTAL SERVICES WORKER Work Phone: [facility] 01-01-2002 pneumococcal conjuga te vaccine, 7 valent Oralia Lause ENVIRONMENTAL SERVICES WORKER Work Phone: [facility] 2001 diphtheria, tetanus toxoids and acellular pertussis vaccine, unspecified formulation Oralia Lause ENVIRONMENTAL SERVICES WORKER Work Phone: [facility] 2001 haemophilus influenz ae type b vaccine, HbOC conjugate Oralia Lause ENVIRONMENTAL SERVICES WORKER Work Phone: [facility] 2001 pneumococcal conjuga te vaccine, 7 valent Oralia Lause ENVIRONMENTAL SERVICES WORKER Work Phone: [facility] 2001 poliovirus vaccine, inactivated Oralia Lause ENVIRONMENTAL SERVICES WORKER Work Phone: [facility] 2001 diphtheria, tetanus toxoids and acellular pertussis vaccine, unspecified formulation Oralia Lause ENVIRONMENTAL SERVICES WORKER Work Phone: [facility] 2001 haemophilus influenz ae type b vaccine, HbOC conjugate Oralia Lause ENVIRONMENTAL SERVICES WORKER Work Phone: [facility] 2001 pneumococcal conjuga te vaccine, 7 valent Oralia Lause ENVIRONMENTAL SERVICES WORKER Work Phone: [facility] 2001 poliovirus vaccine, inactivated Oralia Lause ENVIRONMENTAL SERVICES WORKER Work Phone: [facility] 2001 hepatitis B vaccine, pediatric or pediatric/adolescent dosage Oralia Lause ENVIRONMENTAL SERVICES WORKER Work Phone: [facility] Payers Date Payer Category Payer Self-pay 2023 Unknown [id number] 2022 Unknown [employer] [id number] 2022-Present [address] [place] [address] [id number] 2022 Unknown [id number] 2001 Unknown [id number] 2001 Unknown [id number] 2001 Unknown [id number] 2001 Unknown [id number] 1959 Self-pay [id number] 1959 Unknown [id number] Unknown [id number] Unknown [id number] Social History Date Type Detail Facility Unknown if ever smoked [employer] Other Start: 10-23-2022 End: 04-21-2023 Sex Assigned At [facility] Start: 10-28-2022 Tobacco smoking stat [facility] Never smoked tobacco [facility] Start: 10-28-2022 Tobacco use and exposure Smokeless tobacco non-user [facility] Start: 04-20-2023 End: 04-21-2023 Alcohol intake Current drinker of alcohol (finding) [facility] Start: 10-23-2022 End: 04-20-2023 Alcohol intake [facility] Within the last year , have you been afraid of your partner or ex-partner? No [facility] How often do you attend tenriism or hinduism services? Patient refused [facility] Are you now , , , , never or living with a partner? Never [facility] How often to you hav e a drink containing alcohol? Monthly or less [facility] How many standard drinks containing alcohol do you have on a typical day? 1 or 2 [facility] How often do you hav e 6 or more drinks on 1 occasion? Never [facility] Do you feel stress - tense, restless, nervous, or anxious, or unable to sleep at night because your mind is troubled all the time - these days [OSQ] Only a little [facility] (I/We) worried wheth er (my/our) food would run out before (I/we) got money to buy more. Never true [facility] Start: 10-28-2022 Alcohol Comment caffeine intak e: 1-2 cups per day [facility] Start: 2001 [facility]igned At [facility] Start: 10-23-2022 Gender identity Identifies as female gender (finding) [facility] History of Present illness Narrative 04-21-2023 Oralia Mcadams ENVIRONMENTAL SERVICES WORKER - 04/21/2023 3:40 PM EST Note Date & Type Note Facility 04-21-2023 History of Presen t illness Narrative Family Medicine Note Subjective: Chief Complaint: Anxiety HPI: Shalini Craig presents to the office today with complaints of anxiety. The patient reports that she has been dealing with anxiety for some time, however she feels as though she is at the point where she would like to try medication. She states that she is planning to move after graduating from college this summer and this does cause increased anxiety. She is also requesting to be referred to a counselor. She denies further complaints. Current Outpatient Medications: Estarylla 0.25-35 MG-MCG tablet, , Disp: , Rfl: hydrOXYzine HCl (Atarax) 25 MG tablet, Take 0.5 tablets (12.5 mg) by mouth as needed at bedtime for anxiety, Disp: 15 tablet, Rfl: 0 sertraline (Zoloft) 25 MG tablet, Take 1 tablet (25 mg) by mouth in the morning., Disp: 30 tablet, Rfl: 0 Medical History: Past Medical History: Diagnosis Date ADD (attention deficit disorder) ADHD (attention deficit hyperactivity disorder) ([facility]) Allergies Allergies: No Known Allergies Social History: Tobacco Use: Tobacco Use: Low Risk (04/21/2023) Patient History Smoking Tobacco Use: Never Smokeless Tobacco Use: Never Passive Exposure: Not on file Objective: Vitals: 04/21/23 1533 BP: 136/80 BP Location: Left arm Patient Position: Sitting BP Cuff Size: Adult Pulse: 100 Resp: 16 Temp: 97.6 F TempSrc: Temporal SpO2: 100% Weight: 152 lb Height: 4' 11.5 Physical Exam Vitals and nursing note reviewed. Constitutional: Appearance: Normal appearance. She is normal weight. HENT: Head: Normocephalic and atraumatic. Right Ear: External ear normal. Left Ear: External ear normal. Nose: Nose normal. Mouth/Throat: Mouth: Mucous membranes are moist. Eyes: Pupils: Pupils are equal, round, and reactive to light. Cardiovascular: Rate and Rhythm: Normal rate and regular rhythm. Pulses: Normal pulses. Heart sounds: Normal heart sounds. Pulmonary: Effort: Pulmonary effort is normal. Breath sounds: Normal breath sounds. No wheezing, rhonchi or rales. Abdominal: General: Bowel sounds are normal. There is no distension. Palpations: Abdomen is soft. Tenderness: There is no abdominal tenderness. Musculoskeletal: General: Normal range of motion. Cervical back: Normal range of motion. Skin: General: Skin is warm and dry. Capillary Refill: Capillary refill takes less than 2 seconds. Neurological: General: No focal deficit present. Mental Status: She is alert and oriented to person, place, and time. Psychiatric: Mood and Affect: Mood normal. Assessment: Diagnoses and all orders for this visit: Anxiety - sertraline (Zoloft) 25 MG tablet; Take 1 tablet (25 mg) by mouth in the morning. - hydrOXYzine HCl (Atarax) 25 MG tablet; Take 0.5 tablets (12.5 mg) by mouth as needed at bedtime for anxiety - Ambulatory referral to Psychology; Future - Vitamin D 25 hydroxy; Future - Vitamin B12; Future - T4, free; Future - TSH Encounter for vitamin deficiency screening - Vitamin D 25 hydroxy; Future - Vitamin B12; Future Screening for lipid disorders - Lipid panel Adult general medical examination - Comprehensive metabolic panel - CBC auto differential Screening for thyroid disorder - T4, free; Future - TSH Assess/Plan Problem List Items Addressed This Visit None Visit Diagnoses Anxiety - Primary Relevant Medications sertraline (Zoloft) 25 MG tablet hydrOXYzine HCl (Atarax) 25 MG tablet Medication as directed. Counseling recommended. Verbalizes understanding of the need to be seen in the emergency department for suicidal/homicidal ideation, excessive stress, elevated blood pressure or palpitations. Patient offers understanding of treatment plan. I discussed the side effects of the medications prescribed and to seek medical care if they arise. Discussed stress management strategies, social support and importance of healthy diet, exercise and regular sleep habits. Advised on relaxation methods to decrease anxiety and depression. All questions answered. Call the office with any other questions or concerns. Other Relevant Orders Ambulatory referral to Psychology Vitamin D 25 hydroxy Vitamin B12 T4, free TSH Encounter for vitamin deficiency screening Relevant Orders Vitamin D 25 hydroxy Vitamin B12 Screening for lipid disorders Relevant Orders Lipid panel Adult general medical examination Relevant Orders Comprehensive metabolic panel CBC auto differential Screening for thyroid disorder Relevant Orders T4, free TSH Follow-up: Follow up in about 4 weeks (around 05/19/2023) for anxiety . documented in this encounter [facility] Evaluation note 12-11-2022 Note Date & Type Note Facility 12-11-2022 Evaluation note Encounter Date Diagnosis Assessment Notes Nov, Acute laryngitis (ICD-10 - J04.0) Take medicine as prescribed. Drink plenty of fluids and get plenty of rest. If symptoms worsen or do not improve in 5-7 days, return to urgent care if you can not get in to see your pcp. Take tylenol as needed. No ibuprofen, aleve, or aspirin with prednisone. Nov, Acute non-recurrent sinusitis, unspecified location (ICD-10 - J01.90) [employer] Other Evaluation note 11-01-2021 Note Date & Type Note Facility 11-01-2021 Evaluation note Encounter Date Diagnosis Assessment Notes Oct, Contact with and (suspected) exposure to other viral communicable diseases (ICD-10 - Z20.828) Symptoms appear viral today. Bacteria infections take several days to weeks of symptoms to develop. Use saline nasal spray before prescription one and you have better results. Recommend OTC medications such as Mucinex DM, Delsym, Cepocal Lozenges Continue tylenol/ibuprof en for general discomfort. Encourage fluids. Symptoms should improve within the next 10-14 days. If no improvement of symptoms in 14 days call primary care provider to discuss antibiotic therapy [employer] Other Evaluation note 07-10-2021 Note Date & Type Note Facility 07-10-2021 Evaluation note Encounter Date Diagnosis Assessment Notes Jun, Contact with and (suspected) exposure to other viral communicable diseases (ICD-10 - Z20.828) Jun, Allergic sinusitis (ICD-10 - J30.9) Symptoms present really appear more allergy than viral. sent over medications to help with symptom relief. If no improvement of symptoms in 10-14 days then recommend follow up with primary care provider. Jun, Other Additional time spent conducting pre-visit phone call, screening for symptoms, instructions on social distancing, application and removal of PPE, and cleaning of examination room, equipment and supplies was preformed. Patient education given for testing methodology and results. Patient care instructions given in writting by [facility] Care At Home document. [employer] Other Evaluation note Note Date & Type Note Facility Evaluation note Diagnosis Anxiety- Primary Anxiety state, unspecified Encounter for vitamin deficiency screening Screening for lipid disorders Adult general medical examination Unspecified general medical examination Screening for thyroid disorder documented in this encounter [facility] History general Narrative - Reported Note Date & Type Note Facility History general Narrative - Reported Type Medical History otitis media Surgical History PE tubes Hospitalization History see above [employer] Other Summary Purpose Family History No Family History Records FoundNo Family History Records FoundNo Family History Records FoundNo Family History Records Found Advance Directives No Advanced Directives Records FoundNo Advanced Directives Records FoundNo Advanced Directives Records FoundNo Advanced Directives Records Found Reason for Referral Specialty Diagnoses / Procedures Referred By Contact Referred To Contact Psychology / Behavioral Health Diagnoses Anxiety Procedures ND OFFICE/OUTPATIENT [facility] 60 MINUTES Oralia Mcadams ENVIRONMENTAL SERVICES WORKER [address] [place] [address] [facility] [address] [facility] [address] [place] [address] Referral ID Status Reason Start Date Expiration Date Visits Requested Visits Authorized [id number] Authorized Specialty Services Required 04/21/2023 10/18/2023 1 1 Additional Source Comments INFORMATION SOURCE (unrecogn ized section and content) DATE CREATED AUTHOR 03/23/2021 [facility] Me dical Specialist DATE CREATED AUTHOR AUTHOR'S ORGANIZ ATION 10/10/2021 [facility] DATE CREATED AUTHOR AUTHOR'S ORGANIZ ATION 03/01/2023 [facility] DATE CREATED AUTHOR AUTHOR'S ORGANIZ ATION 04/22/2023 [facility] dical Specialists EPIC REASON FOR VISIT (unrecogniz ed section and content) SORE THROAT, SNEEZING, RUNNY NOSE, H/A, COVID Provider VisitBLACK IMPALA, H/A, CHILLS, SWEATS, EARACHE, NASAL CONGESTIONlost voice Care Teams (unrecognized sec tion and content) Tongue Trimmer Relationship Specialty Start Date End Date Sadie Ferguson NP [address] [place] [address] PCP - Medical [employer] 08/15/22 Judie Castanon MD [address] [place] [address] PCP - General Family Medicine 07/23/22 Dyana Kwong NP [address] [place] [address] Nurse Practitioner Family Medicine 10/23/22 Oralia Mcadams NP [address] [place] [id number] Nurse Practitioner Pulmonary Disease 10/23/22 Tongue Trimmer Relationship Specialty Start Date End Date Sadie Ferguson NP [address] [place] [id number] PCP - Medical [employer] 08/15/22 Judie Castanon MD [address] [place] [id number] PCP - General Family Medicine 07/23/22 Dyana Kwong NP [address] [place] [id number] Nurse Practitioner Family Medicine 10/23/22 Oralia Mcadams NP [address] [place] [id number] Nurse Practitioner Pulmonary Disease 10/23/22 FOR RECORDS PERTAINING TO PATIENTS WHO ARE OR HAVE BEEN ENROLLED IN A CHEMICAL DEPENDENCY/SUBSTANCEABUSE PROGRAM, SOME INFORMATION MAY BE OMITTED. This clinical summary was aggregated from multiple sources. Caution should be exercised in using it in the provision of clinical care. This summary normalizes information from multiple sources, and as a consequence, information in this document may materially change the coding, format and clinical context of patient data. In addition, data may be omitted in some cases. CLINICAL DECISIONS SHOULD BE BASED ON THE PRIMARY CLINICAL RECORDS. [facility] [employer] [facility]. provides no warranty or guarantee of the accuracy or completeness of information in this document.
[2023-05-05 09:20] LABS: Alanine Aminotransferase 17 U/L (14-59); Albumin Globulin Ratio 0.8; Albumin Level 3.4 g/dL (3.4-5.0); Alkaline Phosphatase 71 U/L (46-116); Anion Gap 13.5; Aspartate Amino Transferase 17 U/L (15-37); BUN Creatinine Ratio 15.2; Bilirubin Total 0.4 mg/dL (0.2-1.0); Calcium 8.9 mg/dL (8.5-10.1); Carbon Dioxide 26.5 mmol/L (21.0-32.0); Chloride 101 mmol/L (98-107); Chol HDL Ratio 2.4; Cholesterol 176 mg/dL (<=200); Estimated GFR (African America >60 (>=60); Estimated GFR (Non-African Ame >60 (>=60); Globulin 4.3 g/dL; Glucose 72 mg/dL (74-106); HDL Cholesterol 74 mg/dL (40-60); Sodium 137 mmol/L (136-145); Thyroid Stimulating Hormone 1.746 uIU/mL (0.358-3.740); Total Protein 7.7 g/dL (6.4-8.2); Triglycerides 46 mg/dL (<=150); VLDL CHOLESTEROL 9.2 mg/dL
== END 2023-05-05 08:25 | disposition home or self-care (01) ==
LOC: LAB 08:25
DX: Z00.00 Encounter for general adult medical examination without abnormal findings (principal); Z13.220 Encounter for screening for lipoid disorders; F41.9 Anxiety disorder, unspecified; Z13.29 Encounter for screening for other suspected endocrine disorder; Z13.21 Encounter for screening for nutritional disorder
CPT/HCPCS: 36415; 80053; 80061; 82306; 82607; 84439; 84443